=== PATIENT | male | born 1985 | race Caucasian/White ===

== ENCOUNTER 2016-08-17 20:50 | Emergency (ER) | payer MEDICAID ==
[2016-08-17 23:05] VITALS: BP 126/62
== END 2016-08-17 23:05 | disposition home or self-care (01) ==
LOC: ED 20:50
DX: H83.09 Labyrinthitis, unspecified ear (principal); H81.10 Benign paroxysmal vertigo, unspecified ear; J40 Bronchitis, not specified as acute or chronic
CPT/HCPCS: J8597; Q0162

== ENCOUNTER 2016-08-28 19:41 | Emergency (ER) | payer MEDICAID ==
[2016-08-28 22:10] VITALS: BP 122/76
== END 2016-08-28 22:10 | disposition home or self-care (01) ==
LOC: ED 19:41
DX: R06.02 Shortness of breath (principal); R05 Cough; R07.89 Other chest pain
CPT/HCPCS: J1885; J7512; J7613; J7644

== ENCOUNTER 2018-07-25 17:06 | Emergency (ER) | payer MEDICAID ==
[~2018-07-25] VITALS: Ht 170.2 cm; Wt 92.1 kg
[2018-07-25 17:13] VITALS: Ht 170.2 cm; Wt 92.1 kg
[2018-07-25 17:50] LABS: BASOPHIL % 1.3 % (0-2); PLATELET COUNT 200 x10^3mcL (130-400); RED CELL DISTRIBUTION WIDTH 13.2 % (11.5-14.5)
[2018-07-25 17:56] LABS: CALCIUM 8.8 mg/dL (8.5-10.1); CHLORIDE SERUM 103 mmol/L (98-107); CREATININE SERUM 0.8 mg/dL (0.7-1.3); GFR1 > 60 mL/min; GLUCOSE SERUM 104 mg/dL (74-106); POTASSIUM SERUM 3.9 mmol/L (3.5-5.1); SODIUM SERUM 140 mmol/L (136-145)
[2018-07-25 18:03] LABS: UA SPECIFIC GRAVITY 1.015 (1.005-1.035); microscopic required? YES; urine erythrocyte NEGATIVE (NEGATIVE)
[2018-07-25 18:11] LABS: AMPHETAMINE QUAL UR NONE DETECTED (See below)
[2018-07-25 18:11] LABS: ALBUMIN 3.9 g/dL (3.4-5.0); ALKALINE PHOSPHATASE 70 U/L (46-116); ALT/SGPT 33 U/L (16-63); AMYLASE 41 U/L (25-115); AST/SGOT 20 U/L (15-37); BILIRUBIN TOTAL 0.5 mg/dL (0.20-1.00); CHOLESTEROL 175 mg/dL (<200); LIPASE 136 IU/L (73-393); T4(THYROXINE) 7.6 ug/dL (4.7-13.3)
[2018-07-25 18:13] LABS: HDL CHOLESTEROL 32 mg/dL (40-60)
[2018-07-25 19:20] VITALS: BP 131/77
== END 2018-07-25 19:20 | disposition home or self-care (01) ==
LOC: ED 17:06
PROVIDERS: Emergency Medicine
DX: R07.89 Other chest pain (principal); E78.00 Pure hypercholesterolemia, unspecified; Z90.89 Acquired absence of other organs
CPT/HCPCS: 36415; 85378; G0480